=== PATIENT | male | born 1940 | race Two or more races ===

== ENCOUNTER 2018-07-29 15:15 | Emergency (ER) | payer MEDICARE, OTHER ==
[2018-07-29] MEDS ORDERED: NORMAL SALINE 1000 ML 1,000 ML IV PRN (15:53)
--- NOTE | 2018-07-29 15:54 | ER Document Report ---
ED Medical Screen (RME) - General Chief Complaint: Rectal Bleeding Stated Complaint: SHOULDER PAIN/BLOOD IN STOOL Time Seen by Provider: 07/29/18 15:49 Notes: 77 years old male not in any blood thinners or taking any NSAID presents today with rectal bleed, denies any epigastric or abdominal pain. But feeling dizzy and lightheaded for the last couple of days. His conjunctivae is pale TRAVEL OUTSIDE OF THE [place] IN LAST 30 DAYS: No - Related Data Allergies/Adverse Reactions: aspirin [Aspirin] Adverse Reaction (Verified 07/29/18 15:16) rash Past Medical History - Past Medical History Cardiac Medical History: Denies: Hx Coronary Artery Disease, Hx Heart Attack, Hx Hypercholesterolemia , Hx Hypertension Pulmonary Medical History: Denies: Hx Asthma, Hx Bronchitis, Hx COPD, Hx Pneumonia Neurological Medical History: Denies: Hx Cerebrovascular Accident, Hx Seizures Endocrine Medical History: Denies: Hx Diabetes Mellitus Type 1, Hx Diabetes Mellitus Type 2, Hx Hyperthyroidism, Hx Hypothyroidism Malignancy Medical History: Reports Hx Skin Cancer GI Medical History: Denies: Hx Cirrhosis, Hx Gastroesophageal Reflux Disease, Hx Hepatitis Musculoskeltal Medical History: Reports Hx Arthritis Infectious Medical History: Denies: Hx Hepatitis Past Surgical History: Reports: Other - Excision of skin cancer from scalp. - Immunizations Hx Diphtheria, Pertussis, Tetanus Vaccination: No Physical Exam - Vital signs Vitals: Temp Pulse Resp BP Pulse Ox 98.3 F 129 H 16 93/61 L 100 07/29/18 15:18 07/29/18 15:18 07/29/18 15:18 07/29/18 15:18 07/29/18 15:18 Course - Vital Signs Vital signs: Temp Pulse Resp BP Pulse Ox 98.3 F 129 H 16 93/61 L 100 07/29/18 15:18 07/29/18 15:18 07/29/18 15:18 07/29/18 15:18 07/29/18 15:18
[2018-07-29 16:50] LABS: ABSOLUTE EOSINOPHILS # (AUTO) 0.2 10^3/uL (0.0-0.6); ABSOLUTE LYMPHOCYTES (AUTO) 1.6 10^3/uL (0.5-4.7); ABSOLUTE MONOCYTES (AUTO) 0.5 10^3/uL (0.1-1.4); ABSOLUTE NEUT (AUTO) 7.8 10^3/uL (1.7-8.2); BASOPHILS % (AUTO) 0.4 % (0-2); EOSINOPHILS % (AUTO) 2.4 % (0-6); HEMATOCRIT 24.1 % (37.9-51.0); HEMOGLOBIN 8.2 g/dL (13.5-17.0); MEAN CORPUSCULAR HEMOGLOBIN 32.7 pg (27.0-33.4); MEAN CORPUSCULAR VOLUME 96 fl (80-97); MONOCYTES % (AUTO) 4.6 % (3-13); PLATELET COUNT 330 10^3/uL (150-450); SEGMENTED NEUTROPHILS % (AUTO) 76.6 % (42-78); TOTAL CELLS COUNTED % (AUTO) 100 %; WHITE BLOOD COUNT 10.2 10^3/uL (4.0-10.5)
[2018-07-29 16:55] LABS: APPEARANCE,URINE CLEAR; BILIRUBIN,URINE NEGATIVE (NEGATIVE); COLOR,URINE YELLOW; GLUCOSE, URINE NEGATIVE (NEGATIVE); KETONES,URINE NEGATIVE (NEGATIVE); LEUKOCYTE ESTERASE,URINE NEGATIVE (NEGATIVE); NITRITE,URINE NEGATIVE (NEGATIVE); PROTEIN,URINE NEGATIVE (NEGATIVE); UROBILINOGEN,URINE NEGATIVE mg/dL (<2.0)
[2018-07-29] MEDS ORDERED: PANTOPRAZOLE SODIUM 40 MG VIAL IV ONE (16:57)
[2018-07-29] MEDS ORDERED: PANTOPRAZOLE SODIUM 40 MG VIAL IV PRN (16:57)
[2018-07-29 16:58] LABS: INTERNATIONAL RATION (INR) 0.91; PROTHROMBIN TIME 12.7 SEC (11.4-15.4)
[2018-07-29 17:14] LABS: ALANINE AMINOTRANSFERASE 16 U/L (21-72); ALBUMIN 3.5 g/dL (3.5-5.0); ALKALINE PHOSPHATASE 82 U/L (38-126); ANION GAP 7 (5-19); ASPARTATE AMINO TRANSFERASE 19 U/L (17-59); BILIRUBIN,DIRECT 0.3 mg/dL (0.0-0.4); BILIRUBIN,TOTAL 0.3 mg/dL (0.2-1.3); BLOOD UREA NITROGEN 27 mg/dL (7-20); CALCIUM 9.6 mg/dL (8.4-10.2); CARBON DIOXIDE 27 mmol/L (22-30); CHLORIDE 106 mmol/L (98-107); GLUCOSE 140 mg/dL (75-110); POTASSIUM 4.9 mmol/L (3.6-5.0); SODIUM 139.6 mmol/L (137-145); TOTAL PROTEIN 6.1 g/dL (6.3-8.2)
--- NOTE | 2018-07-29 17:27 | RADIOLOGY REPORT (SQ) ---
EXAM DESCRIPTION: CHEST SINGLE VIEW COMPLETED DATE/TIME: 07/29/2018 5:14 pm REASON FOR STUDY: shoulder pain COMPARISON: 08/14/2016 EXAM PARAMETERS: NUMBER OF VIEWS: One view. TECHNIQUE: Single frontal radiographic view of the chest acquired. RADIATION DOSE: NA LIMITATIONS: None. FINDINGS: LUNGS AND PLEURA: No opacities, masses or pneumothorax. No pleural effusion. MEDIASTINUM AND HILAR STRUCTURES: No masses. Contour normal. HEART AND VASCULAR STRUCTURES: Cardiomegaly with left chest multi lead pacer defibrillator placed in the interval. BONES: No acute findings. HARDWARE: None in the chest. OTHER: No other significant finding. IMPRESSION: Cardiomegaly without acute abnormality of the lungs in AP projection. No acute radiogra phic findings on chest radiograph to explain shoulder pain. Consider dedicated imaging. TECHNICAL DOCUMENTATION: JOB ID: [id number] [employer]- All Rights Reserved Reading location - IP/workstation name: [email or web address]
--- NOTE | 2018-07-29 17:48 | ER Document Report ---
ED General - General Chief Complaint: Rectal Bleeding Stated Complaint: SHOULDER PAIN/BLOOD IN STOOL Time Seen by Provider: 07/29/18 15:49 TRAVEL OUTSIDE OF THE [place] IN LAST 30 DAYS: No - HPI Patient complains to provider of: Rectal bleeding bilateral shoulder pain Notes: Patient coming in for bilateral shoulder pain and bright red blood per rectum. 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 Patient states no aggravation or exacerbation of this pain. Patient also states passing bright red blood per rectum for the last 2 days. Patient states no weakness no dizziness no chest pain shortness of breath fever chills nausea vomiting diarrhea. Patient denies any blood thinning medication or NSAID use. Denies any alcohol use. Patient does have a history of cardiomyopathy that required an AICD. Patient does state he smokes half pack a day. Patient denies a history of GI bleed in the past also denies a history of having a colonoscopy performed. Patient otherwise is resting comfortably upon my evaluation the triage vital signs show the patient significantly tachycardic with a blood pressure in the 90 systolic s. - Related Data Allergies/Adverse Reactions: aspirin [Aspirin] Adverse Reaction (Verified 07/29/18 15:16) rash Past Medical History - Social History Smoking Status: Current Every Day Smoker Frequency of alcohol use: Social Drug Abuse: None Family History: CAD, DM, Hypertension Patient has suicidal ideation: No Patient has homicidal ideation: No - Past Medical History Cardiac Medical History: Denies: Hx Coronary Artery Disease, Hx Heart Attack, Hx Hypercholesterolemia , Hx Hypertension Pulmonary Medical History: Denies: Hx Asthma, Hx Bronchitis, Hx COPD, Hx Pneumonia Neurological Medical History: Denies: Hx Cerebrovascular Accident, Hx Seizures Endocrine Medical History: Denies: Hx Diabetes Mellitus Type 1, Hx Diabetes Mellitus Type 2, Hx Hyperthyroidism, Hx Hypothyroidism Renal/ Medical History: Denies: Hx Peritoneal Dialysis Malignancy Medical History: Reports Hx Skin Cancer GI Medical History: Denies: Hx Cirrhosis, Hx Gastroesophageal Reflux Disease, Hx Hepatitis Musculoskeletal Medical History: Reports Hx Arthritis Infectious Medical History: Denies: Hx Hepatitis Past Surgical History: Reports: Hx Cardiac Surgery - pacemaker, Other - Excision of skin cancer from scalp. - Immunizations Hx Diphtheria, Pertussis, Tetanus Vaccination: No Review of Systems - Review of Systems Constitutional: No symptoms reported EENT: No symptoms reported Cardiovascular: No symptoms reported Respiratory: No symptoms reported Gastrointestinal: Rectal bleeding Genitourinary: No symptoms reported Male Genitourinary: No symptoms reported Musculoskeletal: Other - Bilateral shoulder pain Skin: No symptoms reported Hematologic/Lymphatic: No symptoms reported Neurological/Psychological: No symptoms reported -: Yes All other systems reviewed and negative Physical Exam - Vital signs Vitals: Temp Pulse Resp BP Pulse Ox 98.3 F 129 H 16 93/61 L 100 07/29/18 15:18 07/29/18 15:18 07/29/18 15:18 07/29/18 15:18 07/29/18 15:18 Interpretation: Tachycardic - General General appearance: Appears well, Alert - HEENT Head: Normocephalic, Atraumatic Eyes: Normal Pupils: PERRL - Respiratory Respiratory status: No respiratory distress Chest status: Nontender Breath sounds: Normal Chest palpation: Normal - Cardiovascular Rhythm: Regular, Tachycardia Heart sounds: Normal auscultation Murmur: No - Abdominal Inspection: Normal Distension: No distension Bowel sounds: Normal Tenderness: Nontender Organomegaly: No organomegaly - Rectal Stool: Heme positive, Bloody - Black Hemorrhoids: None - Back Back: Normal, Nontender - Extremities General upper extremity: Normal inspection, Nontender, Normal color, Normal ROM , Normal temperature General lower extremity: Normal inspection, Nontender, Normal color, Normal ROM , Normal temperature, Normal weight bearing. No: Nicholas's sign - Neurological Neuro grossly intact: Yes Cognition: Normal Orientation: AAOx4 Troy Coma Scale Eye Opening: Spontaneous Lelia Coma Scale Verbal: Oriented Lelia Coma Scale Motor: Obeys Commands Troy Coma Scale Total: 15 Speech: Normal Motor strength normal: LUE, RUE, LLE, RLE Sensory: Normal - Psychological Associated symptoms: Normal affect, Normal mood - Skin Skin Temperature: Warm Skin Moisture: Dry Skin Color: Normal Course - Re-evaluation Re-evalutation: 07/29/18 18:04 Patient coming in for GI bleed. Patient's laboratory studies do show anemia with hemoglobin 8.2. Last time patient was here in the hospital 2016 had a hemoglobin of 13.5. Patient is requesting to leave AGAINST MEDICAL ADVICE. Did explain to the patient with the at bedside that there is a very high chance that the patient can go home and bleed to or have other medical calls such as cardiac ischemia or cardiac because of the significant anemia or could have otherwise preventable disability avoided if the patient agrees to stay in the hospital will be transferred. Patient declines blood transfusions transfer or admission to the hospital. Patient is able to verbalize the risk of going home to myself nurse Jennifer is at bedside along with the patient's . Patient is a no x3 and looks to be able to make his own medical decisions agrees that he is in his normal mental state and also agrees with the plan to send the patient out AGAINST MEDICAL ADVICE. Patient was encouraged to return to the hospital at the earliest convenience or to the nearest emergency room for further evaluation as they believe the patient will require blood transfusions and GI evaluation - Vital Signs Vital signs: Temp Pulse Resp BP Pulse Ox 98.3 F 129 H 27 H 128/67 H 97 07/29/18 15:18 07/29/18 15:18 07/29/18 17:17 07/29/18 17:16 07/29/18 17:17 - Laboratory Result Diagrams: 07/29/18 16:21 07/29/18 16:21 Laboratory results interpreted by me: 07/29/18 07/29/18 16:21 16:21 RBC 2.50 L Hgb 8.2 L Hct 24.1 L BUN 27 H Glucose 140 H ALT 16 L Total Protein 6.1 L Discharge - Discharge Clinical Impression: Tobacco dependency GI bleed Qualifiers: GI bleed type/associated pathology: unspecified gastrointestinal hemorrhage type Qualified Code(s): K92.2 - Gastrointestinal hemorrhage, unspecified Condition: Good Disposition: AGAINST MEDICAL ADVICE Instructions: Anemia ([facility]), Rectal Bleeding, Unclear Cause ([facility]) Additional Instructions: You have a gastrointestinal bleed. Your laboratory studies shows a significant anemia that you require blood transfusions. He also require evaluation by kennel operator to identify the area of bleeding. I have explained to you that our facility would recommend transfer to another hospital is that we do not have gastroenterology specialty here at our facility. You have declined transfer and you have declined any further treatment. You stated an understanding that you may go home and bleed to or suffer other medical issues due to gastrointestinal bleed that can cause . You have repeated these words back to me and stated understanding of the risk in going home. I would highly recommend that you return to the hospital at your earliest convenience for further treatment of your gastrointestinal bleed
[2018-07-29 18:12] VITALS: BP 124/71
--- NOTE | 2018-07-30 07:45 | EKG REPORT ---
SEVERITY:- ABNORMAL ECG - SINUS TACHYCARDIA VENTRICULAR PREMATURE COMPLEX INCOMPLETE RIGHT BUNDLE BRANCH BLOCK : Confirmed by: Sofy Myers MD 30-Jul-2018 07:45:06
== END 2018-07-29 18:12 | disposition left against medical advice (07) ==
LOC: ER 15:15
DX: K92.2 Gastrointestinal hemorrhage, unspecified (principal); M25.512 Pain in left shoulder; M25.511 Pain in right shoulder; F17.210 Nicotine dependence, cigarettes, uncomplicated; Z88.6 Allergy status to analgesic agent; Z95.810 Presence of automatic (implantable) cardiac defibrillator; Z85.828 Personal history of other malignant neoplasm of skin
CPT/HCPCS: 93005; 99284; 96361; 96374; 86900; 86901; 36415; 86850; 85025; 85610; 82272; 80053; 81001; 84484; 71045; 93010; C9113; J7030; S0164

== ENCOUNTER 2018-08-22 09:56 | Day surgery (SDC) | payer MEDICARE ==
[~2018-08-22 09:56] MED LIST: PROPOFOL INJ 200 MG/20 ML VIAL IV ONE
[2018-08-22 11:25] VITALS: BP 138/82
--- NOTE | 2018-08-22 13:08 | Operative Report ---
Operative Report DATE OF SURGERY: 08/22/18 Operative Report: The risks, benefits and alternatives of the procedure including the risk of bleeding, perforation requiring surgery have been explained to the patient in detail and informed consent is obtained. Patient is brought back to the endoscopy suite and placed in the left, lateral decubital position. Timeout was called. Propofol medications administered. A rectal examination is done which did not reveal any masses, tears or fissures. An Olympus videoscope is introduced into the patient's rectum the scope was then carefully advanced all the way to the cecum. The cecum was identified by the usual anatomical landmarks including the ileocecal valve and the appendiceal orifice and photodocumentation was obtained. The scope was then sequentially pulled back via the rest segments of the colon including the ascending colon, hepatic flexure, transverse colon, splenic flexure, descending colon and finally into the rectosigmoid portions of the colon. Retroflexion maneuver is performed. The risks benefits and alternatives of the procedure explained to the patient in detail and informed consent is obtained.A GIF Olympus video scope was inserted into the patient's mouth and hypopharynx, the esophagus is identified intubated and insufflated, the scope was then advanced through the esophagus stomach and duodenum, retroflexion maneuver is done, the esophagus stomach and first and second portions of the duodenum examined. PREOPERATIVE DIAGNOSIS: Rectal bleeding, anemia POSTOPERATIVE DIAGNOSIS: Small colon polyp noted in the cecum there is able to be removed via biopsy forceps in its entirety. Very significant diverticulosis throughout the colon but not associated with any diverticulitis. Internal hemorrhoids. Gastritis status post biopsy. Esophagitis status post biopsy for confirmation of possible Hdz's esophagus OPERATION: Colonoscopy with biopsy. EGD with biopsy SURGEON: REJI BEARDEN ANESTHESIA: LMAC TISSUE REMOVED OR ALTERED: As noted above. COMPLICATIONS: None. ESTIMATED BLOOD LOSS: None. INTRAOPERATIVE FINDINGS: As noted above. PROCEDURE: Patient tolerated the procedure well. No immediate postprocedure complications are noted. Patient discharged in good condition. Discharge date 08/22/2018. Discharge diet: Regular. Discharge activity: Regular. 2-3-week follow-up to discuss findings. Follow-up on the pathology. Patient is instructed to call the office or proceed to the emergency room should there be any further problems or questions. Patient will be able to resume his anticoagulation.
== END 2018-08-22 11:24 | disposition home or self-care (01) ==
LOC: END 09:56
PROVIDERS: ATTEND Internal Medicine Gastroenterology
DX: K52.9 Noninfective gastroenteritis and colitis, unspecified (principal); K20.9 Esophagitis, unspecified; D12.0 Benign neoplasm of cecum; K57.30 Diverticulosis of large intestine without perforation or abscess without bleeding; K64.8 Other hemorrhoids; D64.9 Anemia, unspecified; K62.5 Hemorrhage of anus and rectum; J45.909 Unspecified asthma, uncomplicated; M19.90 Unspecified osteoarthritis, unspecified site; F17.210 Nicotine dependence, cigarettes, uncomplicated; I25.2 Old myocardial infarction; R01.1 Cardiac murmur, unspecified; I51.9 Heart disease, unspecified; Z79.02 Long term (current) use of antithrombotics/antiplatelets; Z79.82 Long term (current) use of aspirin; Z79.899 Other long term (current) drug therapy; Z79.51 Long term (current) use of inhaled steroids; Z95.0 Presence of cardiac pacemaker
CPT/HCPCS: 43239; 45380; 88342 ×2; 88305 ×2; 88313 ×2; J2704; 813

== ENCOUNTER 2018-08-31 10:27 | Emergency (ER) | payer MEDICARE, OTHER ==
[2018-08-31] MEDS ORDERED: METHYLPREDNISOLONE INJ 125 MG/2 ML SDV IV ONE (11:05)
[2018-08-31] MEDS ORDERED: ALBUTEROL SULFATE 0.083% NEB 2.5 MG/3 ML AMPUL NEB ONE ×2 (11:05→13:21)
--- NOTE | 2018-08-31 11:07 | ER Document Report ---
ED Medical Screen (RME) - General Chief Complaint: Breathing Difficulty Stated Complaint: DIFFICULTY BREATHING Time Seen by Provider: 08/31/18 11:01 Notes: 77-year-old male to the emergency department chief complaint of worsening shortness of breath. Taking breathing treatments at home but not getting better. Followed by Dr. Staton. Continues to get worse. Having some tightness in the chest some mild chest pain as well. I have greeted and performed a rapid initial assessment of this patient. A comprehensive ED assessment and evaluation of the patient, analysis of test results and completion of the medical decision making process will be conducted by additional ED providers. TRAVEL OUTSIDE OF THE [place] IN LAST 30 DAYS: No - Related Data Allergies/Adverse Reactions: aspirin [Aspirin] Adverse Reaction (Verified 08/31/18 10:29) rash Past Medical History - Social History Frequency of alcohol use: None Drug Abuse: None - Past Medical History Cardiac Medical History: Reports: Hx Coronary Artery Disease Denies: Hx Heart Attack, Hx Hypercholesterolemia, Hx Hypertension Pulmonary Medical History: Reports: Hx Asthma, Hx COPD Denies: Hx Bronchitis, Hx Pneumonia Neurological Medical History: Denies: Hx Cerebrovascular Accident, Hx Seizures Endocrine Medical History: Denies: Hx Diabetes Mellitus Type 1, Hx Diabetes Mellitus Type 2, Hx Hyperthyroidism, Hx Hypothyroidism Renal/ Medical History: Denies: Hx Peritoneal Dialysis Malignancy Medical History: Reports Hx Skin Cancer GI Medical History: Denies: Hx Cirrhosis, Hx Gastroesophageal Reflux Disease, Hx Hepatitis Musculoskeltal Medical History: Reports Hx Arthritis Infectious Medical History: Denies: Hx Hepatitis Past Surgical History: Reports: Hx Cardiac Surgery - pacemaker, Other - Excision of skin cancer from scalp. - Immunizations Hx Diphtheria, Pertussis, Tetanus Vaccination: No Influenza Administration Date for 05/2017 - 10/2017 Season: 05/16/18 Physical Exam - Vital signs Vitals: Temp Pulse Resp BP Pulse Ox 98.1 F 97 24 H 168/63 H 95 08/31/18 10:33 08/31/18 10:33 08/31/18 10:33 08/31/18 10:33 08/31/18 10:33 - Respiratory Breath sounds: Decreased air movement, Wheezing - Cardiovascular Rhythm: Regular Course - Vital Signs Vital signs: Temp Pulse Resp BP Pulse Ox 98.1 F 97 24 H 168/63 H 95 08/31/18 10:33 08/31/18 10:33 08/31/18 10:33 08/31/18 10:33 08/31/18 10:33
--- NOTE | 2018-08-31 12:17 | RADIOLOGY REPORT (SQ) ---
EXAM DESCRIPTION: CHEST 2 VIEWS COMPLETED DATE/TIME: 08/31/2018 12:08 pm REASON FOR STUDY: sob COMPARISON: 07/29/2018 EXAM PARAMETERS: NUMBER OF VIEWS: two views TECHNIQUE: Digital Frontal and Lateral radiographic views of the chest acquired. RADIATION DOSE: NA LIMITATIONS: none FINDINGS: LUNGS AND PLEURA: No opacities, masses or pneumothorax. No pleural effusion. MEDIASTINUM AND HILAR STRUCTURES: No masses or contour abnormalities. HEART AND VASCULAR STRUCTURES: Heart normal size. No evidence for failure. BONES: No acute findings. HARDWARE: Pacemaker/defibrillator. OTHER: No other significant finding. IMPRESSION: NO ACUTE RADIOGRAPHIC FINDING IN THE CHEST. TECHNICAL DOCUMENTATION: JOB ID: [id number] [employer] All Rights Reserved Reading location - IP/workstation name: [email or web address]
[2018-08-31 12:52] LABS: ABSOLUTE LYMPHOCYTES (AUTO) 1.8 10^3/uL (0.5-4.7); ABSOLUTE MONOCYTES (AUTO) 0.7 10^3/uL (0.1-1.4); ABSOLUTE NEUT (AUTO) 6.5 10^3/uL (1.7-8.2); BASOPHILS % (AUTO) 0.5 % (0-2); HEMATOCRIT 40.6 % (37.9-51.0); HEMOGLOBIN 13.7 g/dL (13.5-17.0); MEAN CORPUSCULAR HEMOGLOBIN 31.8 pg (27.0-33.4); MEAN CORPUSCULAR HGB CONC 33.7 g/dL (32.0-36.0); MEAN CORPUSCULAR VOLUME 94 fl (80-97); MONOCYTES % (AUTO) 6.8 % (3-13); PLATELET COUNT 361 10^3/uL (150-450); RED CELL DISTRIBUTION WIDTH 15.9 % (11.5-14.0); SEGMENTED NEUTROPHILS % (AUTO) 64.7 % (42-78); TOTAL CELLS COUNTED % (AUTO) 100 %
[2018-08-31 13:14] LABS: ALANINE AMINOTRANSFERASE 29 U/L (21-72); ALBUMIN 4.4 g/dL (3.5-5.0); ALKALINE PHOSPHATASE 95 U/L (38-126); ANION GAP 6 (5-19); ASPARTATE AMINO TRANSFERASE 27 U/L (17-59); BILIRUBIN,DIRECT 0.1 mg/dL (0.0-0.4); BILIRUBIN,TOTAL 0.4 mg/dL (0.2-1.3); BLOOD UREA NITROGEN 15 mg/dL (7-20); CALCIUM 9.8 mg/dL (8.4-10.2); CARBON DIOXIDE 31 mmol/L (22-30); CHLORIDE 101 mmol/L (98-107); CREATINE KINASE 40 U/L (55-170); GLUCOSE 109 mg/dL (75-110); SODIUM 138.3 mmol/L (137-145)
[2018-08-31] MEDS ORDERED: IPRATROPIUM/ALBUTEROL 0.5-2.5 MG/3 ML AMPUL NEB ONE (13:21)
--- NOTE | 2018-08-31 13:23 | ER Document Report ---
ED General - General Chief Complaint: Breathing Difficulty Stated Complaint: DIFFICULTY BREATHING Time Seen by Provider: 08/31/18 11:01 TRAVEL OUTSIDE OF THE [place] IN LAST 30 DAYS: No - HPI Notes: Patient is a 77-year-old male that presents to the emergency department for chief complaint of shortness of breath. Patient has COPD and presents today short of breath. He states it has been progressing over the last month. The shortness of breath became more severe this morning. He uses albuterol inhaler twice a day. He denies any home oxygen. He denies taking any steroids at home. Patient denies having any chest pain or palpitations. He states he has a dry cough with no fevers or chills. His shortness of breath is worse with exertion. Past Medical History: COPD Past Surgical History: Reviewed in chart Social History: Denies drugs alcohol and tobacco Family History: Reviewed and noncontributory for presenting illness Allergies: Reviewed, see documented allergy list. REVIEW OF SYSTEMS: CONSTITUTIONAL : No fever No chills No diaphoresis No recent illness EENT: No vision changes No congestion No sore throat CARDIOVASCULAR: No chest pain No palpitations RESPIRATORY: shortness of breath cough difficulty breathing GASTROINTESTINAL: No abdominal pain No nausea No vomiting No diarrhea GENITOURINARY: No dysuria No hematuria No difficulty urinating MUSCULOSKELETAL: No back pain No leg pain No arm pain SKIN: No rashes No lesions LYMPHATIC: No swollen, enlarged glands. NEUROLOGICAL: No lightheadedness No headache No weakness No paresthesias PSYCHIATRIC: No anxiety No depression PHYSICAL EXAMINATION: Vital signs reviewed, nursing noted reviewed. GENERAL: Well-appearing, well-nourished and in no acute distress. HEAD: Atraumatic, normocephalic. EYES: Eyes appear normal, extraocular movements intact, sclera anicteric, conjun ctiva are normal. ENT: nares patent, oropharynx clear without exudates. Moist mucous membranes. NECK: Normal range of motion, supple without lymphadenopathy LUNGS: Mild tachypnea, breath sounds wheezing to auscultation bilaterally and equal. HEART: Regular rate and rhythm without murmurs ABDOMEN: Soft, nontender, normoactive bowel sounds. No rebound, guarding, or rigidity. No masses appreciated. EXTREMITIES: Nontender, good range of motion, no pitting or edema. NEUROLOGICAL: No focal neurological deficits. Moves all extremities spontaneously Motor and sensory grossly intact on exam. PSYCH: Normal mood, normal affect. SKIN: Warm, Dry, normal turgor, no rashes or lesions noted on exposed skin - Related Data Allergies/Adverse Reactions: aspirin [Aspirin] Adverse Reaction (Verified 08/31/18 10:29) rash Past Medical History - Social History Smoking Status: Current Every Day Smoker Frequency of alcohol use: None Drug Abuse: None Family History: CAD, DM, Hypertension Patient has suicidal ideation: No Patient has homicidal ideation: No - Past Medical History Cardiac Medical History: Reports: Hx Coronary Artery Disease Denies: Hx Heart Attack, Hx Hypercholesterolemia, Hx Hypertension Pulmonary Medical History: Reports: Hx Asthma, Hx COPD Denies: Hx Bronchitis, Hx Pneumonia Neurological Medical History: Denies: Hx Cerebrovascular Accident, Hx Seizures Endocrine Medical History: Denies: Hx Diabetes Mellitus Type 1, Hx Diabetes Mellitus Type 2, Hx Hyperthyroidism, Hx Hypothyroidism Renal/ Medical History: Denies: Hx Peritoneal Dialysis Malignancy Medical History: Reports Hx Skin Cancer GI Medical History: Denies: Hx Cirrhosis, Hx Gastroesophageal Reflux Disease, Hx Hepatitis Musculoskeletal Medical History: Reports Hx Arthritis Infectious Medical History: Denies: Hx Hepatitis Past Surgical History: Reports: Hx Cardiac Surgery - pacemaker, Other - Excision of skin cancer from scalp. - Immunizations Hx Diphtheria, Pertussis, Tetanus Vaccination: No Hx Pneumococcal Vaccination: 07/16/17 Physical Exam - Vital signs Vitals: Temp Pulse Resp BP Pulse Ox 98.1 F 97 24 H 168/63 H 95 08/31/18 10:33 08/31/18 10:33 08/31/18 10:33 08/31/18 10:33 08/31/18 10:33 Course - Re-evaluation Re-evalutation: 08/31/18 13:23 Vitals reviewed. Nursing notes reviewed. Patient has mild tachypnea with no respiratory distress. He had symptomatic relief after one albuterol and will be given another albuterol and DuoNeb treatment. Patient was also given Solu- Medrol for COPD exacerbation. 08/31/18 14:34 Patient reevaluated and had more relief after the repeat aerosols. He is oxygenating well on room air and still in no respiratory distress. His lung sounds have improved however they are still wheezy. Patient will be started on prednisone at home. He was encouraged to use his albuterol rescue inhaler 2 puffs every 4 hours. He will return if his symptoms are not improving or worsen. He will follow with his primary care in the next few days for close reevaluation. He is stable at discharge. Laboratory 08/31/18 08/31/18 08/31/18 12:35 12:35 12:35 WBC 10.0 RBC 4.30 L Hgb 13.7 Hct 40.6 MCV 94 MCH 31.8 MCHC 33.7 RDW 15.9 H Plt Count 361 Seg Neutrophils % 64.7 Lymphocytes % 18.0 Monocytes % 6.8 Eosinophils % 10.0 H Basophils % 0.5 Absolute Neutrophils 6.5 Absolute Lymphocytes 1.8 Absolute Monocytes 0.7 Absolute Eosinophils 1.0 H Absolute Basophils 0.0 Sodium 138.3 Potassium 5.0 Chloride 101 Carbon Dioxide 31 H Anion Gap 6 BUN 15 Creatinine 0.85 Est GFR ( Amer) > 60 Est GFR (Non-Af Amer) > 60 Glucose 109 Calcium 9.8 Total Bilirubin 0.4 Direct Bilirubin 0.1 Neonat Total Bilirubin Not Reportable Neonat Direct Bilirubin Not Reportable Neonat Indirect Bili Not Reportable AST 27 ALT 29 Alkaline Phosphatase 95 Creatine Kinase 40 L CK-MB (CK-2) 1.00 Troponin I < 0.012 NT-Pro-B Natriuret Pep 147 Total Protein 7.0 Albumin 4.4 Chest X-Ray 08/31/18 11:05 IMPRESSION: NO ACUTE RADIOGRAPHIC FINDING IN THE CHEST. - Vital Signs Vital signs: Temp Pulse Resp BP Pulse Ox 98.1 F 97 21 H 154/83 H 96 08/31/18 10:33 08/31/18 10:33 08/31/18 12:17 08/31/18 12:17 08/31/18 12:17 - Laboratory Result Diagrams: 08/31/18 12:35 08/31/18 12:35 Laboratory results interpreted by me: 08/31/18 08/31/18 12:35 12:35 RBC 4.30 L RDW 15.9 H Eosinophils % 10.0 H Absolute Eosinophils 1.0 H Carbon Dioxide 31 H Creatine Kinase 40 L Discharge - Discharge Clinical Impression: COPD exacerbation Condition: Stable Disposition: HOME, SELF-CARE Instructions: Chronic Obstructive Lung Disease ([facility]) Additional Instructions: Please return to the emergency department if you have any worsening, or concern of your symptoms. Please return to the emergency department if you develop chest pain, difficulty breathing, severe abdominal pain, or ongoing vomiting. Please follow-up with your primary care physician in 2-3 days and any other recommended physicians. If prescribed, take all medications as directed. If you have any questions or concerns do not hesitate to return the emergency department for evaluation. Use your albuterol rescue inhaler 2 puffs every 4 hours Begin taking the prednisone prescription tomorrow Prescriptions: Inhaler, Assist Devices [Space Chamber Plus] 1 each MC DAILY #1 spacer Prednisone [Deltasone] 40 mg PO DAILY #10 tablet
[2018-08-31 13:26] LABS: NT PRO BNP 147 pg/mL (<450)
[2018-08-31 13:28] LABS: TROPONIN I < 0.012 ng/mL
[2018-08-31 14:58] VITALS: BP 137/97
== END 2018-08-31 14:58 | disposition home or self-care (01) ==
LOC: ER 10:27
DX: J44.1 Chronic obstructive pulmonary disease with (acute) exacerbation (principal); Z79.899 Other long term (current) drug therapy; R06.02 Shortness of breath; R05 Cough; F17.200 Nicotine dependence, unspecified, uncomplicated; I25.10 Atherosclerotic heart disease of native coronary artery without angina pectoris; Z85.828 Personal history of other malignant neoplasm of skin; Z95.0 Presence of cardiac pacemaker
CPT/HCPCS: 94640 ×2; 99285; 96374; 36415; 82553; 82550; 85025; 80053; 84484; 83880; 71046; J2930; A9270 ×2; J7620

== ENCOUNTER → 2019-02-20 | Outpatient (CLI) | payer MEDICARE ==
--- NOTE | 2019-02-20 19:09 | RADIOLOGY REPORT (SQ) ---
EXAM DESCRIPTION: CT CHEST WITHOUT COMPLETED DATE/TIME: 02/20/2019 10:38 am REASON FOR STUDY: DYSPNEA R06.00 DYSPNEA, UNSPECIFIED COMPARISON: None. TECHNIQUE: CT scan performed of the chest without intravenous contrast. Images reviewed with lung, soft tissue and bone windows. Reconstructed coronal and sagittal MPR images reviewed. All images st ored on PACS. All CT scanners at this facility use dose modulation, iterative reconstruction, and/or weight based d osing when appropriate to reduce radiation dose to as low as reasonably achievable (ALARA). [facility]: Dose Right [facility]: CareDose [facility]: Dose Right [facility]: Teradose 4D [facility]: Smart [place] RADIATION DOSE: CT Rad equipment meets quality standard of care and radiation dose reduction techniq ues were employed. CTDIvol: 6.9 mGy. DLP: 272 mGy-cm. mGy. LIMITATIONS: No technical limitations. FINDINGS: LUNGS AND PLEURA: Mild emphysematous changes at the bases. Apical scarring. HILAR AND MEDIASTINAL STRUCTURES: No identified masses or abnormal nodes. No obvious aneurysm. HEART AND VASCULAR STRUCTURES: Moderate coronary artery calcification. Very small pericardial effusi on. Cardiac pacemaker defibrillator. UPPER ABDOMEN: No significant findings. Limited exam. THYROID AND OTHER SOFT TISSUES: No masses. No adenopathy. BONES: No significant finding. HARDWARE: None in the chest. OTHER: No other significant findings. IMPRESSION: Mild emphysematous changes. Moderate coronary artery calcification. Small pericardial effusion. TECHNICAL DOCUMENTATION: JOB ID: [id number] Quality ID # [id number]: Final reports with documentation of one or more dose reduction techniques (e.g., Au tomated exposure control, adjustment of the mA and/or kV according to patient size, use of iterative reconstruction technique) 2010 [employer]- All Rights Reserved Reading location - IP/workstation name: [email or web address]
== END ==
LOC: RAD 10:27
PROVIDERS: ATTEND Internal Medicine Pulmonary Disease
DX: I25.10 Atherosclerotic heart disease of native coronary artery without angina pectoris (principal); I31.3 Pericardial effusion (noninflammatory); R06.00 Dyspnea, unspecified
CPT/HCPCS: 71250

== ENCOUNTER 2019-04-20 20:44 | Inpatient (IN) | payer MEDICARE, OTHER ==
[2019-04-20] MEDS ORDERED: IPRATROPIUM/ALBUTEROL 0.5-2.5 MG/3 ML AMPUL NEB ONE ×2 (20:49→23:54)
[2019-04-20] MEDS ORDERED: METHYLPREDNISOLONE INJ 125 MG/2 ML SDV IV ONE (20:49)
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
[2019-04-20] MEDS: MAGNESIUM SULFATE/D5W 1 GM/100 ML RTUPB IV SCH ×2 (21:04→22:08)
[2019-04-20 21:20] LABS: VENOUS BLOOD BASE EXCESS 2.4 mmol/L; VENOUS BLOOD PCO2 59.1 mmHg (35-63); VENOUS BLOOD PH 7.32 (7.30-7.42)
[2019-04-20 21:27] LABS: ABSOLUTE BASOPHILS # (AUTO) 0.1 10^3/uL (0.0-0.2); ABSOLUTE LYMPHOCYTES (AUTO) 2.1 10^3/uL (0.5-4.7); ABSOLUTE MONOCYTES (AUTO) 0.9 10^3/uL (0.1-1.4); ABSOLUTE NEUT (AUTO) 11.5 10^3/uL (1.7-8.2); BASOPHILS % (AUTO) 0.5 % (0-2); EOSINOPHILS % (AUTO) 6.1 % (0-6); HEMOGLOBIN 13.9 g/dL (13.5-17.0); LYMPHOCYTES % (AUTO) 13.7 % (13-45); MEAN CORPUSCULAR HEMOGLOBIN 31.5 pg (27.0-33.4); MEAN CORPUSCULAR HGB CONC 33.1 g/dL (32.0-36.0); MEAN CORPUSCULAR VOLUME 95 fl (80-97); MONOCYTES % (AUTO) 5.7 % (3-13); PLATELET COUNT 373 10^3/uL (150-450); RED BLOOD COUNT 4.42 10^6/uL (4.35-5.55); RED CELL DISTRIBUTION WIDTH 13.2 % (11.5-14.0); TOTAL CELLS COUNTED % (AUTO) 100 %; WHITE BLOOD COUNT 15.6 10^3/uL (4.0-10.5)
--- NOTE | 2019-04-20 21:51 | RADIOLOGY REPORT (SQ) ---
XR CHEST 1 VIEW EXAM DATE: 04/20/2019 8:49 PM CDT HISTORY: Dyspnea. COMPARISON: 07/29/2018 FINDINGS: The heart size is within normal limits. No consolidation, pleural effusion, or pneumothorax is seen. The bony thorax is intact. Stable left chest wall pacemaker. IMPRESSION: No evidence of acute cardiopulmonary disease.
[2019-04-20 21:52] LABS: ALBUMIN 4.5 g/dL (3.5-5.0); ALKALINE PHOSPHATASE 107 U/L (38-126); ANION GAP 10 (5-19); ASPARTATE AMINO TRANSFERASE 27 U/L (17-59); BILIRUBIN,DIRECT 0.4 mg/dL (0.0-0.4); BILIRUBIN,TOTAL 0.7 mg/dL (0.2-1.3); BLOOD UREA NITROGEN 18 mg/dL (7-20); CALCIUM 9.9 mg/dL (8.4-10.2); CARBON DIOXIDE 31 mmol/L (22-30); CHLORIDE 97 mmol/L (98-107); GLUCOSE 118 mg/dL (75-110); POTASSIUM 4.3 mmol/L (3.6-5.0); TOTAL PROTEIN 7.9 g/dL (6.3-8.2)
[2019-04-20] MEDS ORDERED: ALBUTEROL SULFATE 0.083% NEB 2.5 MG/3 ML AMPUL NEB ONE (22:04)
[2019-04-21] MEDS ORDERED: ONDANSETRON HCL INJ/PF 4 MG/2 ML SDV IV PRN ×2 (01:11→12:00)
[2019-04-21] MEDS ORDERED: MAGNESIUM HYDROXIDE SUSP 30 ML UDCUP PO PRN (01:11)
[2019-04-21] MEDS ORDERED: LEVALBUTEROL HCL NEB 0.63 MG/3 ML AMPUL NEB PRN (01:11)
[2019-04-21] MEDS ORDERED: TEMAZEPAM 15 MG CAPSULE PO PRN (01:11)
[2019-04-21] MEDS ORDERED: MAG HYDROX/AL HYDROX/SIMETH SUSP 30 ML UDCUP PO PRN (01:11)
[2019-04-21] MEDS ORDERED: NICOTINE 21 MG/24 HR PATCH.TD24 TD PRN (01:22)
[2019-04-21] MEDS ORDERED: NALBUPHINE HCL INJ 10 MG/1 ML AMPULE IV PRN ×5 (01:22→02:00)
[2019-04-21] MEDS ORDERED: HYDRALAZINE HCL INJ/PF 20 MG/1 ML SDV IV PRN (01:22)
[2019-04-21] MEDS ORDERED: NITROGLYCERIN 0.4 MG/TAB 25 TAB/BOTTLE SL PRN (01:22)
[2019-04-21] MEDS ORDERED: ACETAMINOPHEN 325 MG TABLET PO PRN (01:22)
[2019-04-21 02:50] LABS: APPEARANCE,URINE CLEAR; BILIRUBIN,URINE NEGATIVE (NEGATIVE); COLOR,URINE YELLOW; GLUCOSE, URINE NEGATIVE (NEGATIVE); KETONES,URINE 20 mg/dL (NEGATIVE); LEUKOCYTE ESTERASE,URINE NEGATIVE (NEGATIVE); NITRITE,URINE NEGATIVE (NEGATIVE); PROTEIN,URINE NEGATIVE (NEGATIVE); URINE SPECIFIC GRAVITY 1.015
[2019-04-21 02:54] LABS: CREATINE KINASE MB 1.65 ng/mL (<4.55); NT PRO BNP 319 pg/mL (<450)
[2019-04-21 02:58] LABS: TROPONIN I < 0.012 ng/mL
--- NOTE | 2019-04-21 03:48 | PDOC H&P ---
History of Present Illness Admission Date/PCP: 04/21/2019 00:46 Patient complains of: Dyspnea History of Present Illness: JANET RAGLAND is a 78 year old male who presented to the emergency room with a four-day history of dyspnea. He admits gradually worsening dyspnea over the last 4 days becoming severe on the evening of 04/20/2019 resulting in his summoning EMS to his home. His dyspnea has been accompanied by air hunger and wheezing. His dyspnea is worsened with exertion. He admits prior similar episodes on numerous occasions related to his COPD and CHF. He denies other accompanying or associated symptoms. He has not identified any additional aggravating or ameliorating factors for his dyspnea. Upon EMS arrival they found him with very labored breathing which required CPAP to alleviate his respiratory distress patient was given nebulizer treatments in route and by the time he arrived at the emergency room he was found to be hypoxic but did not require BiPAP. He continued to require supplemental oxygen for maintenance of an adequate O2 sat greater than 88%. Patient was subsequently admitted to hospital for further evaluation and treatment. Past Medical History Cardiac Medical History: Reports: Congestive Heart Failure, Coronary Artery Disease Denies: Atrial Fibrillation, DVT, Myocardial Infarction, Hyperlipidema, Hype rtension, Pulmonary Embolism Pulmonary Medical History: Reports: Asthma, Chronic Obstructive Pulmonary Disease (COPD), Respiratory Failure Denies: Bronchitis, Pneumonia EENT Medical History: Denies: Cataracts, Ears - Hearing aids Neurological Medical History: Denies: Hemorrhagic CVA, Ischemic CVA, Seizures Endocrine Medical History: Denies: Diabetes Mellitus Type 1, Diabetes Mellitus Type 2, Hyperthyroidism, Hypothyroidism, Obesity Renal/ Medical History: Denies: Chronic Kidney Disease, Nephrolithiasis Malignancy Medical History: Reports: Skin Cancer GI Medical History: Denies: Cirrhosis, Crohn's Disease, Gastroesophageal Reflux Disease, Hepatitis, Ulcerative Colitis Musculoskeltal Medical History: Reports: Arthritis Denies: Gout Skin Medical History: Denies: Eczema, Psoriasis Psychiatric Medical History: Reports: Tobacco Dependency Denies: Alcohol Dependency, Substance Abuse Traumatic Medical History: Reports: None Hematology: Reports: Anemia Denies: Bleeding Tendencies Infectious Medical History: Reports: None Past Surgical History Past Surgical History: Reports: Other - Excision of skin cancer from scalp. Social History Information Source: Patient - Smokes once a day Smoking Status: Current Every Day Smoker Frequency of Alcohol Use: Social Hx Recreational Drug Use: No Drugs: None Hx Prescription Drug Abuse: No - Advance Directive Resuscitation Status: Full Code Surrogate healthcare decision maker:: Hayley Ragland Family History Family History: CAD, DM, Hypertension Parental Family History Reviewed: Yes Children Family History Reviewed: No Sibling(s) Family History Reviewed.: Yes Medication/Allergy Home Medications: Atorvastatin Calcium [Lipitor 40 mg Tablet] 40 mg PO DAILY 08/19/18 Clopidogrel Bisulfate [Plavix 75 mg Tablet] 75 mg PO DAILY 08/19/18 Fluticasone Propionate [Flovent Hfa 110 Mcg Inhalation Aerosol 12 gm] 1 inh PO BID 08/19/18 Furosemide [Lasix 20 mg Tablet] 20 mg PO DAILY 08/19/18 Montelukast Sodium [Singulair 10 mg Tablet] 1 tab PO QPM 08/19/18 Nitroglycerin 1 dose PO .Q5MIN PRN 08/19/18 Pantoprazole Sodium [Protonix] 40 mg PO DAILY 08/19/18 Sacubitril/Valsartan [Entresto 49 mg/51 mg Tablet] 1 tab PO BID 08/19/18 Tiotropium Br/Olodaterol HCl [Stiolto Respimat Inhal [place]] 1 inh PO DAILY 08/19/18 Inhaler, Assist Devices [Space Chamber Plus] 1 each MC DAILY #1 spacer 08/31/18 Prednisone [Deltasone] 40 mg PO DAILY #10 tablet 08/31/18 Allergies/Adverse Reactions: apple Allergy (Mild, Verified 04/21/19 02:58) Swelling of Throat heparin Allergy (Verified 04/20/19 21:29) aspirin [Aspirin] Adverse Reaction (Verified 08/31/18 10:29) rash Review of Systems Constitutional: ABSENT: chills, fever(s) Eyes: ABSENT: visual disturbances, other - Eye pain Ears: ABSENT: hearing changes, other - Ear pain Nose, Mouth, and Throat: ABSENT: mouth pain, sore throat Cardiovascular: PRESENT: dyspnea on exertion. ABSENT: chest pain, edema, orthropnea, palpitations Respiratory: PRESENT: dyspnea, other - Wheezing. ABSENT: cough Gastrointestinal: ABSENT: abdominal pain, constipation, diarrhea, nausea, vomiting Genitourinary: ABSENT: dysuria, hematuria Integumentary: ABSENT: pruritus, rash Neurological: ABSENT: confusion, convulsions, focal weakness, memory loss, syncope Psychiatric: ABSENT: anxiety, depression Endocrine: ABSENT: cold intolerance, heat intolerance Hematologic/Lymphatic: ABSENT: easy bleeding, easy bruising Allergic/Immunologic: ABSENT: seasonal rhinorrhea Physical Exam Vital Signs: Temp Pulse Resp BP Pulse Ox 97.6 F 25 H 137/83 H 97 04/20/19 20:45 04/21/19 00:03 04/20/19 23:01 04/21/19 00:10 Intake & Output 04/19/19 04/20/19 04/21/19 23:59 23:59 23:59 Intake Total 200 Balance 200 Weight 61.7 kg General appearance: PRESENT: no acute distress, cooperative, well-developed, other - On supplemental oxygen Head exam: PRESENT: atraumatic, normocephalic Eye exam: PRESENT: conjunctiva pink. ABSENT: conjunctival injection, scleral icterus Ear exam: PRESENT: normal external ear exam. ABSENT: bleeding, drainage Mouth exam: PRESENT: dry mucosa, neck supple Neck exam: ABSENT: thyromegaly, tracheal deviation Respiratory exam: PRESENT: decreased breath sounds - Mildly decreased breath sounds throughout all lung martin consistent with mild to moderate COPD, pr olonged expiratory phas - Moderately prolonged expiratory phase in all martin, symmetrical, wheezes - Moderate expiratory wheezes present in all martin Cardiovascular exam: PRESENT: RRR. ABSENT: clicks, gallop, rubs GI/Abdominal exam: PRESENT: normal bowel sounds, soft Rectal exam: PRESENT: deferred Extremities exam: ABSENT: joint swelling, pedal edema, tenderness Musculoskeletal exam: ABSENT: deformity, dislocation Neurological exam: PRESENT: alert, oriented to person, oriented to place, oriented to time, oriented to situation, CN II-XII grossly intact. ABSENT: motor sensory deficit Psychiatric exam: PRESENT: appropriate affect, normal mood Skin exam: PRESENT: dry, intact, warm. ABSENT: jaundice, rash, urticaria Results Laboratory Results: 04/20/19 20:55 04/20/19 20:55 04/20/19 04/20/19 04/20/19 20:55 20:55 20:55 WBC 15.6 H RBC 4.42 Hgb 13.9 Hct 42.0 MCV 95 MCH 31.5 MCHC 33.1 RDW 13.2 Plt Count 373 Seg Neutrophils % 74.0 VBG pH 7.32 VBG pCO2 59.1 VBG HCO3 30.0 VBG Base Excess 2.4 Sodium 138.1 Potassium 4.3 Chloride 97 L Carbon Dioxide 31 H Anion Gap 10 BUN 18 Creatinine 0.91 Est GFR ( Amer) > 60 Glucose 118 H Calcium 9.9 Total Bilirubin 0.7 AST 27 Alkaline Phosphatase 107 Total Protein 7.9 Albumin 4.5 Impressions: Chest X-Ray 04/20/19 20:49 IMPRESSION: No evidence of acute cardiopulmonary disease. Assessment and Plan - Diagnosis (1) COPD exacerbation Is this a current diagnosis for this admission?: Yes Plan: Patient be treated with aggressive pulmonary toilet utilizing Xopenex, Atrovent and Pulmicort delivered via nebulizer treatments. Additionally he will be given intravenous Solu-Medrol in a short burst dosage and will also receive supplemental oxygen as required. His O2 sat and respiratory status to be monitored closely throughout his hospital course. A CBC, metabolic profile and magnesium level be obtained daily. (2) Acute respiratory failure Qualifiers: Respiratory failure complication: hypoxia Qualified Code(s): J96.01 - Acute respiratory failure with hypoxia Is this a current diagnosis for this admission?: Yes Plan: Patient will be treated with supplemental oxygen utilizing nasal cannula and or noninvasive airway pressure support devices such as BiPAP or CPAP. Patient's O2 sat was monitored closely throughout his hospital course. (3) CHF (congestive heart failure) Is this a current diagnosis for this admission?: Yes Plan: Patient's congestive heart failure being treated by continuing his current medications. A BNP will be obtained. He will be observed clinically for any signs of changes in his heart failure status. (4) CAD in [place] artery Is this a current diagnosis for this admission?: Yes Plan: Patient be continue with his usual medications for coronary artery disease. His vital signs were monitored frequently and he will be invited to call attention to any changes in his status he may have during his hospital course. (5) Tobacco use disorder, severe, dependence Is this a current diagnosis for this admission?: Yes Plan: Smoking cessation is advised and counseled briefly at the bedside. Patient will have available a nicotine replacement patch for his use as desired. - Time Time Spent with patient: 35 or more minutes Smoking Cessation Education: 3 to 10 minutes Medications reviewed and adjusted accordingly: Yes Anticipated discharge: Home - Inpatient Certification Based on my medical assessment, after consideration of the patient's comorbidities, presenting symptoms, or acuity I expect that the services needed warrant INPATIENT care.: Yes I certify that my determination is in accordance with my understanding of Medicare's requirements for reasonable and necessary INPATIENT services [42 CFR 412.3e].: Yes Medical Necessity: Significant Comorbidiites Make Outpatient Treatment Too Risky, Need Close Monitoring Due to Risk of Patient Decompensation, Need for Nebulizer Therapy and Monitoring of Response, Risk of Complication if Not Cared For in Hospital
--- NOTE | 2019-04-21 03:51 | ADVANCED CARE ---
- Diagnosis (1) COPD exacerbation Diagnosis Current: Yes (2) Acute respiratory failure Diagnosis Current: Yes (3) CHF (congestive heart failure) Diagnosis Current: Yes (4) CAD in [place] artery Diagnosis Current: Yes (5) Tobacco use disorder, severe, dependence Diagnosis Current: Yes Attendance: The patient and myself. Resuscitation Status: Full Code Discussion: After brief discussion the patient has determined that he wishes to remain full code for his resuscitation status during this visit. Furthermore he has named Hayley Jama to be his designated surrogate medical decision-maker. He showed no interest in a discussion of living [place] or advanced directives. Care Planning Goals: 1. Patient will be full CODE STATUS for this visit. 2. Hayley Jama is his designated surrogate medical decision Document(s) Completed: The following entries are made to the patient's permanent medical record via this EMR entry. 1. Patient will be full CODE STATUS for this visit. 2. Hayley Jama is his designated surrogate medical decision Time Spent: 17 minutes
[2019-04-21 04:12] LABS: FREE T3 4.64 pg/mL (2.77-5.27); FREE T4 (FREE THYROXINE) 1.79 ng/dL (0.78-2.19)
[2019-04-21 04:26] LABS: THYROID STIMULATING HORMONE 0.19 uIU/mL (0.47-4.68)
[2019-04-21] MEDS: METHYLPREDNISOLONE INJ 40 MG/1 ML SDV IV SCH ×3 (05:21→21:35)
--- NOTE | 2019-04-21 07:08 | Progress Note ---
Provider Note Provider Note: 04/21/2019-patient min earlier this a.m. COPD exacerbation. On BiPAP at this time. Heart rate in the 120s most likely secondary to respiratory issues. I will add metoprolol succinate 25 mg daily as patient has a soft blood pressure 117 at this time will follow and adjust as needed.
[2019-04-21] MEDS: IPRATROPIUM BROMIDE 0.02% NEB 0.5 MG/2.5 ML AMPUL NEB SCH ×2 (07:44→15:44)
[2019-04-21] MEDS: BUDESONIDE NEB 0.5 MG/2 ML AMPUL NEB SCH ×2 (07:44→20:49)
[2019-04-21] MEDS: LEVALBUTEROL HCL NEB 1.25 MG/3 ML AMPUL NEB SCH ×2 (07:44→15:44)
[2019-04-21 08:25] LABS: CHOLESTEROL 160.67 mg/dL (0-200); CREATINE KINASE 62 U/L (55-170); TRIGLYCERIDES 56 mg/dL (<150)
[2019-04-21 08:35] LABS: CREATINE KINASE MB 2.66 ng/mL (<4.55); DIRECT LDL 91 mg/dL (<100); TROPONIN I 0.047 ng/mL
[2019-04-21] MEDS: FAMOTIDINE 20 MG TABLET PO SCH ×2 (11:20→21:35)
[2019-04-21] MEDS: FUROSEMIDE 20 MG TABLET PO SCH (11:20)
[2019-04-21] MEDS: SACUBITRIL/VALSARTAN 49 MG/51 MG TABLET PO SCH ×2 (11:21→21:35)
[2019-04-21] MEDS: CLOPIDOGREL BISULFATE 75 MG TABLET PO SCH (11:21)
[2019-04-21] MEDS: METOPROLOL SUCCINATE 25 MG TAB.SR.24H PO SCH (11:21)
[2019-04-21] MEDS: DOCUSATE SODIUM 100 MG CAPSULE PO SCH ×2 (11:38→18:17)
[2019-04-21 15:42] LABS: CREATINE KINASE MB 3.19 ng/mL (<4.55); TROPONIN I 0.094 ng/mL
--- NOTE | 2019-04-21 20:16 | XCELERA REPORT ---
[address] [address] Transthoracic Echocardiogram Report Name: JANET RAGLAND Age: 78 yrs Gender: Male : 1940 Patient Status: [facility] Date: 04/21/2019 09:34 AM Height: 65 in Weight: 156 lb BSA: 1.8 m2 Procedure: A two-dimensional transthoracic echocardiogram with color flow and Doppler was performed. Study Quality: Technically suboptimal. Reason For Study: dyspnea hx chf History: dyspnea hx chf. Ordering Physician: KATIE MOROCHO Performed By: Roro Breaux Interpretation Summary The left ventricle is normal in size. LV EF is > than 70% The left ventricular ejection fraction is within normal limits. Doppler measurements suggest impaired left ventricular relaxation, which is associated with grade I/IV or mild diastolic dysfunction The left ventricular wall motion is normal. No gross thrombus seen.Cannot assesss ASD ,VSD , or PFO seen. The left atrial size is normal. There is no evidence of mitral valve prolapse. There is no vegetation seen on the mitral valve. There is no mitral valve stenosis. There is a mild amount of mitral regurgitation There is no aortic valve stenosis No aortic regurgitation is present. There is aortic sclerosis without aortic stenosis. There is no tricuspid stenosis. There is a trace to mild amount of tricuspid regurgitation There is mild pulmonary hypertension by echo RVSP is 34 mm of Hg , with RA mean of 10. There is no pulmonic valvular stenosis. There is a trace amount of pulmonic regurgitation The aortic root is normal size. There is no pericardial effusion. MMode/2D Measurements & Calculations RVDd: 2.7 cm LVIDd: 3.9 cm FS: 37.5 % Ao root diam: 3.4 cm IVSd: 1.0 cm LVIDs: 2.4 cm EDV(Teich): 65.1 ml Ao root area: 8.9 cm2 LVPWd: 1.0 cm ESV(Teich): 20.7 ml LA dimension: 3.0 cm EF(Teich): 68.2 % Doppler Measurements & Calculations MV E max hector: MV P1/2t max hector: Ao V2 max: LV V1 max P.6 cm/sec 70.1 cm/sec 128.3 cm/sec 3.5 mmHg MV A max hector: MV P1/2t: 27.8 msec Ao max PG: LV V1 max: 94.8 cm/sec MVA(P1/2t): 7.9 cm2 6.6 mmHg 93.8 cm/sec MV E/A: 0.73 MV dec slope: 738.7 cm/sec2 MV dec time: 0.09 sec PA V2 max: PI end-d hector: TR max hector: MV P1/2t-pr_phl: 90.8 cm/sec 141.6 cm/sec 244.3 cm/sec 27.8 msec PA max PG: TR max P.3 mmHg 23.9 mmHg Left Ventricle The left ventricle is normal in size. There is normal left ventricular wall thickness. LV EF is > than 70%. The left ventricular ejection fraction is within normal limits. Doppler measurements suggest impaired left ventricular relaxation, which is associated with grade I/IV or mild diastolic dysfunction. The left ventricular wall motion is normal. No gross thrombus seen.Cannot assesss ASD ,VSD , or PFO seen. Right Ventricle The right ventricle is not well visualized secondary to technical limitations. There is a pacemaker lead in the right ventricle. Atria Right atrium not well visualized secondary to technical limitations. The left atrial size is normal. Mitral Valve There is no evidence of mitral valve prolapse. There is no vegetation seen on the mitral valve. There is no mitral valve stenosis. There is a mild amount of mitral regurgitation. Aortic Valve There is no aortic valvular vegetation. There is no aortic valve stenosis. There is aortic sclerosis without aortic stenosis. No aortic regurgitation is present. Tricuspid Valve There is no tricuspid stenosis. There is a trace to mild amount of tricuspid regurgitation. There is mild pulmonary hypertension by echo. RVSP is 34 mm of Hg , with RA mean of 10. Pulmonic Valve There is no pulmonic valvular stenosis. There is a trace amount of pulmonic regurgitation. Great Vessels The aortic root is normal size. The inferior vena cava was not well visualized. Effusions There is no pericardial effusion. : KATIE MOROCHO Lakshmi
[2019-04-21] MEDS ORDERED: ATORVASTATIN CALCIUM 40 MG TABLET PO SCH (22:00)
[2019-04-21] MEDS ORDERED: MONTELUKAST SODIUM 10 MG TABLET PO SCH (22:00)
[2019-04-22] MEDS: LEVALBUTEROL HCL NEB 1.25 MG/3 ML AMPUL NEB SCH ×2 (00:07→08:12)
[2019-04-22] MEDS: IPRATROPIUM BROMIDE 0.02% NEB 0.5 MG/2.5 ML AMPUL NEB SCH ×2 (00:07→08:12)
[2019-04-22 04:39] LABS: HEMATOCRIT 40.4 % (37.9-51.0); HEMOGLOBIN 13.4 g/dL (13.5-17.0); MEAN CORPUSCULAR HEMOGLOBIN 31.5 pg (27.0-33.4); MEAN CORPUSCULAR HGB CONC 33.2 g/dL (32.0-36.0); MEAN CORPUSCULAR VOLUME 95 fl (80-97); PLATELET COUNT 329 10^3/uL (150-450); RED BLOOD COUNT 4.26 10^6/uL (4.35-5.55); RED CELL DISTRIBUTION WIDTH 13.5 % (11.5-14.0); WHITE BLOOD COUNT 15.6 10^3/uL (4.0-10.5)
[2019-04-22 05:07] LABS: ANION GAP 10 (5-19); BLOOD UREA NITROGEN 21 mg/dL (7-20); CALCIUM 10.1 mg/dL (8.4-10.2); CARBON DIOXIDE 30 mmol/L (22-30); CHLORIDE 98 mmol/L (98-107); GLUCOSE 178 mg/dL (75-110); POTASSIUM 4.5 mmol/L (3.6-5.0)
[2019-04-22] MEDS: BUDESONIDE NEB 0.5 MG/2 ML AMPUL NEB SCH (08:12)
[2019-04-22] MEDS ORDERED: ALBUTEROL SULFATE 0.042% NEB (1.25 MG/3 ML) AMPUL NEB PRN (10:26)
[2019-04-22] MEDS ORDERED: IPRATROPIUM/ALBUTEROL 0.5-2.5 MG/3 ML AMPUL NEB PRN (10:26)
[2019-04-22] MEDS ORDERED: METHYLPREDNISOLONE INJ 125 MG/2 ML SDV IV ONE (10:31)
[2019-04-22] MEDS: DOCUSATE SODIUM 100 MG CAPSULE PO SCH ×2 (10:54→17:38)
[2019-04-22] MEDS: CLOPIDOGREL BISULFATE 75 MG TABLET PO SCH (10:57)
[2019-04-22] MEDS: FAMOTIDINE 20 MG TABLET PO SCH ×2 (10:57→22:17)
[2019-04-22] MEDS: METOPROLOL SUCCINATE 25 MG TAB.SR.24H PO SCH (10:57)
[2019-04-22] MEDS: METHIMAZOLE 5 MG TABLET PO SCH (10:57)
--- NOTE | 2019-04-22 13:57 | Progress Note Acknowledgement ---
Progress Note Acknowledgement Progess Note Acknowledgement: I, the undersigned member of the medical staff with appropriate privileges and with supervisory authority over Madeleine Phillips, a [facility] practice allied health professional, acknowledge that I have reviewed the progress notes entered on this patient, and in my professional judgment believe that the assessment made and/or any care evidenced was appropriate
--- NOTE | 2019-04-22 14:09 | PDOC PROGRESS REPORT ---
Subjective Progress Note for:: 04/22/19 Subjective:: The patient is a 78-year-old male with a past medical history of CHF, CAD, asthma, COPD, arthritis, tobacco dependence who was admitted 04/21/2019 for acute respiratory failure with hypoxia secondary to COPD exacerbation. The patient was seen on morning rounds. He was found resting in bed comfortably on supplemental oxygen by nasal cannula; he is not home O2 dependent. He states that he is feeling well today and is hopeful to be discharged home in the near future. He denies fever, chills, chest pain, palpitations, dyspnea at rest, orthopnea, cough, abdominal pain, nausea vomiting and diarrhea. He has no new questions or concerns today. No concerns per nursing. Reason For Visit: ACUTE RESPIRATORY FAILURE WITH HYPOXIA, ACUTE Physical Exam Vital Signs: Temp Pulse Resp BP Pulse Ox 97.3 F 91 18 138/66 H 96 04/21/19 23:04 04/22/19 08:12 04/22/19 08:12 04/21/19 23:04 04/22/19 08:12 Intake & Output 04/21/19 04/22/19 04/23/19 06:59 06:59 06:59 Intake Total 460 1000 Balance 460 1000 Weight 59.1 kg 59.2 kg General appearance: PRESENT: no acute distress, cooperative, thin, well- developed, well-nourished Head exam: PRESENT: atraumatic, normocephalic Eye exam: PRESENT: conjunctiva pink, EOMI, PERRLA. ABSENT: scleral icterus Ear exam: PRESENT: normal external ear exam Mouth exam: PRESENT: moist, tongue midline Neck exam: ABSENT: carotid bruit, JVD, lymphadenopathy, thyromegaly Respiratory exam: PRESENT: prolonged expiratory phas, symmetrical, unlabored, wheezes - Throughout, other - Supplemental oxygen via nasal cannula. ABSENT: rales, rhonchi Cardiovascular exam: PRESENT: RRR. ABSENT: diastolic murmur, rubs, systolic murmur Pulses: PRESENT: normal dorsalis pedis pul Vascular exam: PRESENT: normal capillary refill GI/Abdominal exam: PRESENT: normal bowel sounds, soft. ABSENT: distended, guarding, mass, organolmegaly, rebound, tenderness Rectal exam: PRESENT: deferred Extremities exam: PRESENT: full ROM. ABSENT: calf tenderness, clubbing, pedal edema Musculoskeletal exam: PRESENT: ambulatory Neurological exam: PRESENT: alert, awake, oriented to person, oriented to place, oriented to time, oriented to situation, CN II-XII grossly intact. ABSENT: motor sensory deficit Psychiatric exam: PRESENT: appropriate affect, normal mood. ABSENT: homicidal ideation, suicidal ideation Skin exam: PRESENT: dry, intact, warm. ABSENT: cyanosis, rash Results Laboratory Results: 04/22/19 04:02 04/22/19 04:02 04/22/19 04/22/19 04:02 04:02 WBC 15.6 H RBC 4.26 L Hgb 13.4 L Hct 40.4 MCV 95 MCH 31.5 MCHC 33.2 RDW 13.5 Plt Count 329 Sodium 137.6 Potassium 4.5 Chloride 98 Carbon Dioxide 30 Anion Gap 10 BUN 21 H Creatinine 0.77 Est GFR ( Amer) > 60 Glucose 178 H Calcium 10.1 Magnesium 2.4 H 04/21/19 04/21/19 04/21/19 02:14 02:14 07:31 Creatine Kinase 50 L 62 CK-MB (CK-2) 1.65 Troponin I < 0.012 NT-Pro-B Natriuret Pep 319 04/21/19 04/21/19 04/21/19 07:31 14:00 14:00 Creatine Kinase 78 CK-MB (CK-2) 2.66 3.19 Troponin I 0.047 0.094 NT-Pro-B Natriuret Pep 04/22/19 09:18 Creatine Kinase CK-MB (CK-2) Troponin I 0.054 NT-Pro-B Natriuret Pep Impressions: Chest X-Ray 04/20/19 20:49 IMPRESSION: No evidence of acute cardiopulmonary disease. Assessment and Plan - Diagnosis (1) COPD exacerbation Is this a current diagnosis for this admission?: Yes Plan: The patient is admitted to the medical floor on continuous cardiac telemetry. He is provided supplemental oxygen and BiPAP as needed to meet saturations. He started on scheduled and as needed nebulizer treatments. Initially placed on IV Solu-Medrol; transition to p.o. prednisone today. We will resume patient's home dose of Flovent and Singulair today. Mucinex twice daily. Encourage pulmonary toilet with incentive spirometer, flutter valve, and ambulation. (2) Acute and chronic respiratory failure with hypoxia Is this a current diagnosis for this admission?: Yes Plan: Improved; patient is now comfortable, maintaining oxygen saturations on 2 L via nasal cannula while at rest, and speaking full sentences. He is no longer BiPAP dependent. Does continue to have wheezing throughout. Continue supplemental oxygen, nebulizer treatments, and remaining management of COPD exacerbation as above. (3) CAD in [place] artery Is this a current diagnosis for this admission?: Yes Plan: Patient is chest pain-free. Continue to monitor on cardiac telemetry. Troponins improved; slight elevated likely secondary to acute respiratory failure. 0.047-> 0.094-> 0.054 Continue home dose Entresto, furosemide, and atorvastatin. Patient has been placed on Plavix secondary to aspirin allergy and metoprolol. Recommend close follow up with established nurseryperson. (4) CHF (congestive heart failure) Is this a current diagnosis for this admission?: Yes Plan: Stable and without exacerbation at this time. proBNP 319. Chest x-ray is negative for acute cardiopulmonary disease. No peripheral edema. Patient has wheezing throughout, no rales/crackles. Continue home medication regiment of Entresto, furosemide, and atorvastatin. The patient has additionally been placed on metoprolol secondary to hypertension and elevated heart rate; now with acceptable blood pressures. (5) Tobacco use disorder, severe, dependence Is this a current diagnosis for this admission?: Yes Plan: Smoking cessation is encouraged. Nicotine replacement therapies are provided. - Time Time Spent with patient: 15-24 minutes Medications reviewed and adjusted accordingly: Yes Anticipated discharge: Home Within: within 24 hours - if tolerates transition to prednisone; may require home O2
[2019-04-22] MEDS: FLUTICASONE PROPIONATE HFA 110 MCG/PUFF 12 GM MDI IH SCH (17:27)
[2019-04-22] MEDS: SACUBITRIL/VALSARTAN 49 MG/51 MG TABLET PO SCH ×2 (17:27→20:05)
[2019-04-22] MEDS ORDERED: MONTELUKAST SODIUM 10 MG TABLET PO SCH (18:00)
[2019-04-22] MEDS: FUROSEMIDE 20 MG TABLET PO SCH (20:06)
[2019-04-22] MEDS ORDERED: ATORVASTATIN CALCIUM 40 MG TABLET PO SCH (22:00)
[2019-04-22] MEDS: GUAIFENESIN 600 MG TABLET.SA PO SCH (22:17)
[2019-04-23 05:04] LABS: HEMATOCRIT 39.8 % (37.9-51.0); HEMOGLOBIN 13.5 g/dL (13.5-17.0); MEAN CORPUSCULAR HEMOGLOBIN 32.2 pg (27.0-33.4); MEAN CORPUSCULAR VOLUME 95 fl (80-97); PLATELET COUNT 355 10^3/uL (150-450); RED BLOOD COUNT 4.21 10^6/uL (4.35-5.55); RED CELL DISTRIBUTION WIDTH 13.4 % (11.5-14.0); WHITE BLOOD COUNT 17.9 10^3/uL (4.0-10.5)
[2019-04-23 05:26] LABS: ANION GAP 8 (5-19); BLOOD UREA NITROGEN 23 mg/dL (7-20); CARBON DIOXIDE 29 mmol/L (22-30); CHLORIDE 101 mmol/L (98-107); GLUCOSE 115 mg/dL (75-110); POTASSIUM 4.6 mmol/L (3.6-5.0)
--- NOTE | 2019-04-23 08:34 | PDOC DISCHARGE SUMMARY ---
General - Admit/Disc Date/PCP Admission Date/Primary Care Provider: 04/21/19 01:00 Discharge Date: 04/23/19 - Discharge Diagnosis (1) COPD exacerbation Is this a current diagnosis for this admission?: Yes (2) Acute respiratory failure Is this a current diagnosis for this admission?: Yes (3) CHF (congestive heart failure) Is this a current diagnosis for this admission?: Yes (4) CAD in [place] artery Is this a current diagnosis for this admission?: Yes (5) Tobacco use disorder, severe, dependence Is this a current diagnosis for this admission?: Yes - Additional Information Resuscitation Status: Full Code Discharge Diet: As Tolerated Discharge Activity: Activity As Tolerated Prescriptions: Fluticasone/Salmeterol [Advair 250-50 Diskus 14 Dose/Diskus] 1 inh IH Q12H #1 inhaler Furosemide [Lasix 20 mg Tablet] 20 mg PO DAILY #15 tablet Prednisone 10 mg PO DAILY #21 tab.ds.pk Albuterol Sulfate [Proair Hfa Inhalation Aerosol 8.5 gm Mdi] 1 puff IH Q4HP PRN #1 mdi PRN Reason: Methimazole [Tapazole 5 mg Tablet] 5 mg PO DAILY #30 tablet Metoprolol Succinate [Toprol Xl 25 mg Tab.sr] 25 mg PO DAILY #30 tab.sr.24h Home Medications: Atorvastatin Calcium [Lipitor 40 mg Tablet] 40 mg PO QHS 04/21/19 Fluticasone Propionate [Flovent Hfa 110 Mcg Inhalation Aerosol 12 gm] 2 puff PO BID 04/21/19 Furosemide [Lasix 20 mg Tablet] 20 mg PO DAILY 04/21/19 Montelukast Sodium [Singulair 10 mg Tablet] 10 mg PO QPM 04/21/19 Nitroglycerin [Nitrostat 0.4 mg (1/150 Gr) Tabs 25/Bottle] 1 tab SL Q5MP PRN 0 04/21/19 Sacubitril/Valsartan [Entresto 49 mg/51 mg Tablet] 1 tab PO BID 04/21/19 Tiotropium Br/Olodaterol HCl [Stiolto Respimat Inhal [place]] 2 puff PO DAILY 04/21/19 Albuterol Sulfate [Proair Hfa Inhalation Aerosol 8.5 gm Mdi] 1 puff IH Q4HP PRN #1 mdi 04/23/19 Fluticasone/Salmeterol [Advair 250-50 Diskus 14 Dose/Diskus] 1 inh IH Q12H #1 inhaler 04/23/19 Furosemide [Lasix 20 mg Tablet] 20 mg PO DAILY #15 tablet 04/23/19 Methimazole [Tapazole 5 mg Tablet] 5 mg PO DAILY #30 tablet 04/23/19 Metoprolol Succinate [Toprol Xl 25 mg Tab.sr] 25 mg PO DAILY #30 tab.sr.24h 04/23/19 Prednisone 10 mg PO DAILY #21 tab.ds.pk 04/23/19 History of Present Illness Patient complains of: None this a.m. History of Present Illness: JANET RAGLAND is a 78 year old male who presented to the emergency room with a 4-day history of dyspnea. Patient states his dyspnea gradually worsened became severe on 04/20/2019 resulting in EMS being called his home. He admits to having similar numerous episodes related to congestive heart failure and COPD. He denies any other accompanying or associated symptoms. EMS found him to be very labored in breathing and initiated by Pap in the field. He was admitted placed on bronchodilators, corticosteroids and antibiotics. Patient was also found to have subacute hyperthyroidism for which she is placed on methimazole 5 mg p.o. daily. Patient has improved sufficiently return home at this time he will follow-up with his primary care practitioner in 1 week. He will require a TSH and a T4 and 2 months and a potassium level on the next visit. I also sent patient home on Advair 250/50 1 inhalation twice daily and a pro-air inhaler every 4 hours as needed for shortness of breath or wheezing as well as a prednisone Dosepak. Hospital Course Hospital Course: Mr. Ragland is a pleasant 78-year-old male who presented to ER with 4-day history of worsening shortness of breath. Physical Exam Vital Signs: Temp Pulse Resp BP Pulse Ox 97.6 F 88 18 142/79 H 96 04/22/19 23:07 04/22/19 23:07 04/22/19 23:07 04/22/19 23:07 04/23/19 00:41 Intake & Output 04/22/19 04/23/19 04/24/19 06:59 06:59 06:59 Intake Total 1000 1946 Balance 1000 1946 Weight 59.2 kg 59.1 kg General appearance: PRESENT: no acute distress, well-developed, well-nourished Head exam: PRESENT: atraumatic, normocephalic Eye exam: PRESENT: conjunctiva pink, EOMI, PERRLA. ABSENT: scleral icterus Ear exam: PRESENT: normal external ear exam Mouth exam: PRESENT: moist, tongue midline Neck exam: ABSENT: carotid bruit, JVD, lymphadenopathy, thyromegaly Respiratory exam: PRESENT: clear to auscultation sonam. ABSENT: rales, rhonchi, wheezes Cardiovascular exam: PRESENT: RRR. ABSENT: diastolic murmur, rubs, systolic murmur Pulses: PRESENT: normal dorsalis pedis pul Vascular exam: PRESENT: normal capillary refill GI/Abdominal exam: PRESENT: normal bowel sounds, soft. ABSENT: distended, guarding, mass, organolmegaly, rebound, tenderness Rectal exam: PRESENT: deferred Extremities exam: PRESENT: full ROM. ABSENT: calf tenderness, clubbing, pedal edema Neurological exam: PRESENT: alert, awake, oriented to person, oriented to place, oriented to time, oriented to situation, CN II-XII grossly intact. ABSENT: motor sensory deficit Psychiatric exam: PRESENT: appropriate affect, normal mood. ABSENT: homicidal ideation, suicidal ideation Skin exam: PRESENT: dry, intact, warm. ABSENT: cyanosis, rash Results Laboratory Results: 04/23/19 04:30 04/23/19 04:30 04/23/19 04/23/19 04:30 04:30 WBC 17.9 H RBC 4.21 L Hgb 13.5 Hct 39.8 MCV 95 MCH 32.2 MCHC 34.0 RDW 13.4 Plt Count 355 Sodium 137.6 Potassium 4.6 Chloride 101 Carbon Dioxide 29 Anion Gap 8 BUN 23 H Creatinine 0.74 Est GFR ( Amer) > 60 Glucose 115 H Calcium 10.0 Magnesium 2.2 04/21/19 04/21/19 04/21/19 02:14 02:14 07:31 Creatine Kinase 50 L 62 CK-MB (CK-2) 1.65 Troponin I < 0.012 NT-Pro-B Natriuret Pep 319 04/21/19 04/21/19 04/21/19 07:31 14:00 14:00 Creatine Kinase 78 CK-MB (CK-2) 2.66 3.19 Troponin I 0.047 0.094 NT-Pro-B Natriuret Pep 04/22/19 09:18 Creatine Kinase CK-MB (CK-2) Troponin I 0.054 NT-Pro-B Natriuret Pep Impressions: Chest X-Ray 04/20/19 20:49 IMPRESSION: No evidence of acute cardiopulmonary disease. Qualifiers - * PATIENT BEING DISCHARGED WITH ANY OF THE FOLLOWING DIAGNOSIS: No Acute Heart Failure - Is this a Heart Failure Patient?: No Plan Time Spent: Greater than 30 Minutes
[2019-04-23] MEDS ORDERED: FUROSEMIDE 20 MG TABLET PO SCH (10:00)
[2019-04-23] MEDS ORDERED: (PENDING PHARMACY ID) (Tiotropium Br/Olodaterol Hcl [Stiolto Respimat Inhal Spray] 4 GM) PO SCH (10:00)
[2019-04-23] MEDS ORDERED: PREDNISONE 20 MG TABLET PO SCH (10:00)
[2019-04-23] MEDS: DOCUSATE SODIUM 100 MG CAPSULE PO SCH (10:56)
[2019-04-23] MEDS: SACUBITRIL/VALSARTAN 49 MG/51 MG TABLET PO SCH (11:00)
[2019-04-23] MEDS: GUAIFENESIN 600 MG TABLET.SA PO SCH (11:01)
[2019-04-23] MEDS: FAMOTIDINE 20 MG TABLET PO SCH (11:01)
[2019-04-23] MEDS: FLUTICASONE PROPIONATE HFA 110 MCG/PUFF 12 GM MDI IH SCH (11:01)
[2019-04-23] MEDS: CLOPIDOGREL BISULFATE 75 MG TABLET PO SCH (11:02)
[2019-04-23] MEDS: METOPROLOL SUCCINATE 25 MG TAB.SR.24H PO SCH (11:02)
[2019-04-23] MEDS: METHIMAZOLE 5 MG TABLET PO SCH (11:02)
[2019-04-23 13:20] VITALS: BP 124/76
--- NOTE | 2019-04-23 18:37 | EKG REPORT ---
SEVERITY:- ABNORMAL ECG - SINUS TACHYCARDIA ABERRANT COMPLEX, POSSIBLY SUPRAVENTRICULAR LAD, CONSIDER LEFT ANTERIOR FASCICULAR BLOCK CONSIDER RIGHT VENTRICULAR HYPERTROPHY : Confirmed by: Rajesh Donnelly 23-Apr-2019 18:36:55
== END 2019-04-23 12:00 | disposition home or self-care (01) | DRG 189 ==
LOC: ER 20:44 → OBSVTOIN 04-21 01:00 → EH 04-21 01:00 → 5 04-21 01:45
PROVIDERS: ADMIT Emergency Medicine; ATTEND Emergency Medicine
DX: J96.21 Acute and chronic respiratory failure with hypoxia (principal); J44.1 Chronic obstructive pulmonary disease with (acute) exacerbation; I50.9 Heart failure, unspecified; I25.10 Atherosclerotic heart disease of native coronary artery without angina pectoris; F17.210 Nicotine dependence, cigarettes, uncomplicated; Z79.01 Long term (current) use of anticoagulants; Z79.52 Long term (current) use of systemic steroids; Z79.899 Other long term (current) drug therapy
CPT/HCPCS: 36415; 71045; 80048; 80053; 80061; 81001; 82550; 82553; 82803; 83735; 83880; 84439; 84443; 84481; 84484; 85025; 85027; 93005; 93010; 93306; 94640; 94660; 94667; 94799; 96365; 96366; 96375; 99285; J0360; J2920; J2930; J3475; J3490; J7512; J7620